=== PATIENT | male | born 1965 | race Caucasian/White ===

== ENCOUNTER 2024-08-20 16:32 | Day surgery (SDC) | payer BC ==
[2024-08-20] MEDS ORDERED: Cyclopentolate 1% Opth Drop 2 ML BOT ONE (16:59)
[2024-08-20] MEDS ORDERED: PHENYLephrine 2.5% Ophth Soln 15 ml Bottle ONE (16:59)
[2024-08-20] MEDS ORDERED: EPINEPHrine 0.3 MG in Ophthalmic Irrigation Solution 500 ML IRR SCH (17:30)
[2024-08-20] MEDS ORDERED: Lidocaine 1% PF 5 ML VIAL ONE (18:33)
[2024-08-20] MEDS ORDERED: PROPOFOL 20 ML ONE (18:33)
[2024-08-20] MEDS ORDERED: fentaNYL 50 mcg/mL 1 mL Vial ONE ×2 (18:52→19:00)
== END 2024-08-20 20:44 | disposition home or self-care (01) ==
LOC: SDC 16:32
PROVIDERS: ATTEND Ophthalmology Retina Specialist
PROC: 08T43ZZ Resection of Right Vitreous, Percutaneous Approach (ICD-10-PCS; principal; 2024-08-20)
DX: H33.021 Retinal detachment with multiple breaks, right eye (principal)
CPT/HCPCS: J0171; J2704; J3010